=== PATIENT | male | born 1955 | race Caucasian/White ===

== ENCOUNTER 2016-10-12 22:28 | Emergency (ER) | payer BC ==
[2016-10-12] MEDS ORDERED: Sodium Chloride 0.9% 1,000 ML IV ONE (22:49)
[2016-10-12 23:13] LABS: CHLORIDE,CL 102 mmol/L (98-107); SODIUM,NA 135 mmol/L (136-145)
[2016-10-12] MEDS ORDERED: Iopamidol 612 MG/ML 100 ML Bottle IVPUSH ONE (23:34)
[2016-10-12] MEDS ORDERED: Iopamidol 612 MG/ML 100 ML Bottle ONE (23:49)
[2016-10-13] MEDS ORDERED: Sodium Chloride 0.9% 1,000 ML IV SCH (00:15)
--- NOTE | 2016-10-13 00:17 | EDM.PDOC ---
ED HPI GI/ABDOMINAL - General Chief Complaint: Abdominal Pain Stated Complaint: RLQ pain Time Seen by Provider: 10/12/16 22:40 Source of Information: Reports: Patient, Family History Limitations: Reports: No limitations - History of Present Illness INITIAL COMMENTS - FREE TEXT/NARRATIVE: Patient had an onset of RLQ abdominal pain at 4pm (6 hrs ago). Has been constant, 5/10, hurts to press the area. No bowel or bladder issues. No F/C/N/ V. No significant PMHx Timing/Duration: Reports: Hour(s): (6) Location: RLQ Quality: Reports: ache Severity: moderate Improves with: Reports: other (none) Worsens with: Reports: other (none) Associated Symptoms: Reports: denies other symptoms - Related Data Allergies/ADRs: Allergies Allergy/AdvReac Type Severity Reaction Status Date / Time No Known Allergies Allergy Verified 10/12/16 22:41 Home Meds: Home Meds . [No Known Home Meds] 10/12/16 [History] Past Medical History - Past Health History Medical/Surgical History: Denies Medical/Surgical History HEENT History: Reports: Impaired vision Other HEENT History: wears glasses, history of broken nose, pt reports breath through mouth Respiratory History: Reports: Sleep apnea, Other (see below) Other Respiratory History: does not use CPAP machine Social & Family History - Tobacco Use Smoking Status *Q: Never Smoker Second Hand Smoke Exposure: No - Caffeine Use Caffeine Use: Reports: Soda - Recreational Drug Use Recreational Drug Use: No ED ROS GENERAL - Review of Systems Review Of Systems: See Below Constitutional: Reports: decreased appetite (since 4pm). Denies: fever, chills , malaise, weakness HEENT: Reports: No symptoms Respiratory: Reports: No Symptoms Cardiovascular: Reports: No symptoms Endocrine: Reports: no symptoms GI/Abdominal: Reports: No symptoms : Reports: no symptoms Musculoskeletal: Reports: no symptoms Skin: Reports: no symptoms Neurological: Reports: No Symptoms Psychiatric: Reports: No symptoms Hematologic/Lymphatic: Reports: no symptoms Immunologic: Reports: no symptoms ED EXAM, GI/ABD - Physical Exam Exam: See Below Exam Limited By: No limitations General Appearance: alert, WD/WN, no apparent distress Ears: normal external exam Nose: normal inspection, normal mucosa, no blood Throat/Mouth: Normal inspection, Normal oropharynx, Normal voice, No airway compromise Head: atraumatic, normocephalic Neck: normal inspection, supple, non-tender, full range of motion. No: lymphadenopathy (L), lymphadenopathy (R) Respiratory/Chest: no respiratory distress, lungs clear, normal breath sounds, no accessory muscle use Cardiovascular: normal peripheral pulses, regular rate, rhythm, no edema, no murmur GI/Abdominal: soft, hypoactive bowel sounds, tenderness (RLQ), Rovsing's sign. No: distention, guarding, rebound, psoas sign Back Exam: normal inspection, full range of motion. No: CVA tenderness (L), CVA tenderness (R) Extremities: normal inspection, normal range of motion, non-tender, no pedal edema, normal capillary refill Neurological: alert, oriented, CN II-XII intact, normal cognition, normal gait, no motor/sensory deficits Psychiatric: normal affect, normal mood Skin Exam: Warm, Dry, Intact, Normal color, No rash Lymphatic: no adenopathy Course - Vital Signs Last Recorded V/S: Last Vital Signs Temp 37.1 C 10/12/16 22:30 Pulse 81 10/12/16 23:50 Resp 18 10/12/16 23:30 BP 158/90 H 10/12/16 23:50 Pulse Ox 95 10/12/16 23:50 - Orders/Labs/Meds Orders: Active Orders 24 hr Category Date Time Status Abdomen Pelvis w Cont [CT] Stat Exams 10/12/16 23:01 Taken Piperacillin/Tazobactam [Zosyn] 3.375 gm Med 10/13/16 02:30 Ordered Sodium Chloride 0.9% [Normal Saline] 100 ml IV Q6H Sodium Chloride 0.9% [Normal Saline] 1,000 ml Med 10/13/16 00:15 Active IV ASDIRECTED Medication Orders Sodium Chloride (Normal Saline) 1,000 mls @ 35 mls/hr IV ASDIRECTED NASRIN Stop: 10/17/16 00:14 Last Admin: 10/13/16 00:15 Dose: 35 mls/hr Piperacillin Sod/Tazobactam (Sod 3.375 gm/ Sodium Chloride) 100 mls @ 200 mls/ hr IV Q6H [facility] Labs: Laboratory Tests 10/12/16 10/12/16 10/12/16 Range/Units 23:00 23:00 23:10 WBC 14.2 H (4.0-10.2) K/uL RBC 5.62 H (4.33-5.41) M/uL Hgb 15.6 (13.1-16.8) g/dL Hct 45.9 (39.0-49.0) % MCV 81.7 L (84.0-98.0) fL MCH 27.8 L (28.2-33.3) pg MCHC 34.0 (31.7-36.0) g/dL RDW 13.7 (11.2-14.1) % Plt Count 180 (150-350) K/uL Neut % (Auto) 80.3 H (45.0-80.0) % Lymph % (Auto) 8.7 L (10.0-50.0) % [place] % (Auto) 10.5 (2.0-14.0) % Eos % (Auto) 0.1 (0.0-5.0) % Baso % (Auto) 0.4 (0.0-2.0) % Neut # (Auto) 11.37 H (1.40-7.00) K/uL Lymph # (Auto) 1.23 (0.50-3.50) K/uL [place] # (Auto) 1.48 H (0.00-1.00) K/uL Eos # (Auto) 0.01 (0.00-0.50) K/uL Baso # (Auto) 0.06 (0.00-0.20) K/uL Sodium 135 L (136-145) mmol/L Potassium 4.4 (3.5-5.1) mmol/L Chloride 102 (98-107) mmol/L Carbon Dioxide 24.3 (21.0-32.0) mmol/L BUN 17 (7-18) mg/dL Creatinine 0.90 (0.51-1.17) mg/dL Est Cr Clr Drug Dosing 91.25 mL/min Estimated GFR (MDRD) > 60 mL/min Glucose 157 H (74-106) mg/dL Calcium 8.7 (8.5-10.1) mg/dL Total Bilirubin 1.1 H (0.2-1.0) mg/dL AST 22 (15-37) U/L ALT 47 (12-78) U/L Alkaline Phosphatase 88 (46-116) IU/L Total Protein 7.4 (6.4-8.2) g/dL Albumin 3.8 (3.4-5.0) g/dL Specimen Type Urincc Urine Color Yellow Urine Appearance Clear Urine pH 6.0 (5.0-9.0) Ur Specific [place] 1.025 (1.005-1.030) Urine Protein Negative (NEGATIVE) mg/dL Urine Glucose (UA) Negative (NEGATIVE) mg/dL Urine Ketones Negative (NEGATIVE) mg/dL Urine Occult Blood Trace-intact H (NEGATIVE) Urine Nitrite Negative (NEGATIVE) Urine Bilirubin Negative (NEGATIVE) Urine Urobilinogen 0.2 (0.2-1.0) E.U./dL Ur Leukocyte Esterase Negative (NEGATIVE) Urine RBC 0-5 /HPF Urine WBC 0-5 /HPF Ur Epithelial Cells Few /LPF Urine Bacteria Rare (NONE TO FEW) /HPF Meds: Medications Generic Name Dose Route Start Last Admin Trade Name Freq PRN Reason Stop Dose Admin Sodium Chloride 1,000 mls @ 35 mls/hr 10/13/16 00:15 10/13/16 00:15 Normal Saline IV 10/17/16 00:14 35 mls/hr ASDIRECTED NASRIN Administration Piperacillin Sod/Tazobactam 100 mls @ 200 mls/hr 10/13/16 02:30 Sod 3.375 gm/ Sodium Chloride IV Q6H NASRIN Discontinued Medications Generic Name Dose Route Start Last Admin Trade Name Freq PRN Reason Stop Dose Admin Sodium Chloride 1,000 mls @ 999 mls/hr 10/12/16 22:49 10/12/16 23:01 Normal Saline IV 10/12/16 23:49 999 mls/hr .BOLUS ONE Administration Iopamidol 100 ml 10/12/16 23:34 Isovue-300 (61%) IVPUSH 10/12/16 23:35 ONETIME ONE Iopamidol Confirm 10/12/16 23:49 10/13/16 00:16 Isovue-300 (61%) Administered 10/12/16 23:50 100 ml Dose Administration 100 ml .ROUTE .STK-MED ONE Departure - Departure Time of Disposition: 02:21 Disposition: DC/Tfer to Acute Hospital 02 Condition: good Clinical Impression: Appendicitis Qualifiers: Appendicitis type: acute appendicitis Acute appendicitis type: with localized peritonitis Qualified Code(s): K35.3 - Acute appendicitis with localized peritonitis Forms: ED Department Discharge - Problem List Review Problem List Initiated/Reviewed/Updated: No - My Orders Last 24 Hours: My Active Orders 10/12/16 23:01 Abdomen Pelvis w Cont [CT] Stat 10/13/16 00:15 Sodium Chloride 0.9% [Normal Saline] 1,000 ml IV ASDIRECTED 10/13/16 02:30 Piperacillin/Tazobactam [Zosyn] 3.375 gm Sodium Chloride 0.9% [Normal Saline] 100 ml IV Q6H - Assessment/Plan Last 24 Hours: My Active Orders 10/12/16 23:01 Abdomen Pelvis w Cont [CT] Stat 10/13/16 00:15 Sodium Chloride 0.9% [Normal Saline] 1,000 ml IV ASDIRECTED 10/13/16 02:30 Piperacillin/Tazobactam [Zosyn] 3.375 gm Sodium Chloride 0.9% [Normal Saline] 100 ml IV Q6H Assessment:: Acute appendicitis Plan: 1. Transfer to [facility] (Dr. Oglesby) 2. Zosyn 3.375gr ivp
[2016-10-13 01:56] VITALS: BP 158/90
[2016-10-13] MEDS ORDERED: Piperacillin/Tazobactam 3.375 GM in Sodium Chloride 0.9% 100 ML IV SCH (02:30)
== END 2016-10-13 03:00 ==
LOC: LL.ED 22:28
DX: K35.3 Acute appendicitis with localized peritonitis (principal)
CPT/HCPCS: 36415; 74177; 80053; 81001; 85025; 96361; 96365; 96367; 99285; J2543; J7030; J7050; Q9967

== ENCOUNTER 2022-08-07 16:23 | Emergency (ER) | payer OTHER ==
[2022-08-07 16:56] VITALS: BP 149/87; PULSE 67
== END 2022-08-07 16:59 | disposition home or self-care (01) ==
LOC: LL.ED 16:23
DX: S70.02XA Contusion of left hip, initial encounter (principal); W19.XXXA Unspecified fall, initial encounter; Y99.0 Civilian activity done for income or pay
CPT/HCPCS: 99283

== ENCOUNTER 2024-09-11 10:23 | Day surgery (SDC) | payer BC ==
[~2024-09-11 10:23] MED LIST: Midazolam 1 MG/ML 2 ML SDV ONE; Propofol 200 MG/20 ML SDV ONE
[2024-09-11] MEDS ORDERED: Sodium Chloride 0.9% 10 ML Syringe FLUSH PRN (10:30)
[2024-09-11] MEDS: Lactated Ringers 1,000 ML IV SCH (10:50)
[2024-09-11 12:39] VITALS: PULSE 64
[2024-09-11 12:41] VITALS: BP 130/67
== END 2024-09-11 13:10 | disposition home or self-care (01) ==
LOC: LL.SDS 10:23
PROVIDERS: ATTEND Surgery
DX: Z12.11 Encounter for screening for malignant neoplasm of colon (principal); K63.5 Polyp of colon; K62.1 Rectal polyp; Z80.0 Family history of malignant neoplasm of digestive organs; I10 Essential (primary) hypertension; E66.9 Obesity, unspecified; Z68.37 Body mass index [BMI] 37.0-37.9, adult; G47.10 Hypersomnia, unspecified; Z79.899 Other long term (current) drug therapy
CPT/HCPCS: 00811; 45380; 82947; J2250; J2704; J7120

== ENCOUNTER 2024-11-27 10:25 | Day surgery (SDC) | payer BC ==
[~2024-11-27 10:25] MED LIST changes: +Sodium Chloride 0.9% 10 ML Syringe FLUSH PRN
[2024-11-27] MEDS: Lactated Ringers 1,000 ML IV SCH (10:31)
[2024-11-27 14:32] VITALS: BP 134/85; PULSE 62
== END 2024-11-27 12:55 | disposition home or self-care (01) ==
LOC: LL.SDS 10:25
PROVIDERS: ATTEND Surgery
DX: D64.9 Anemia, unspecified (principal); K31.89 Other diseases of stomach and duodenum; E78.5 Hyperlipidemia, unspecified; I10 Essential (primary) hypertension; E66.9 Obesity, unspecified; Z68.38 Body mass index [BMI] 38.0-38.9, adult; Z79.899 Other long term (current) drug therapy
CPT/HCPCS: J2250; J2704; J7120